=== PATIENT | female | born 1970 | race Caucasian/White ===

== ENCOUNTER 2017-05-21 21:19 | Emergency (ER) | payer OTHER ==
[~2017-05-21] VITALS: Ht 160 cm; Wt 96.6 kg
[2017-05-21 22:02] VITALS: Ht 160 cm; Wt 96.6 kg
[2017-05-22 00:45] VITALS: BP 128/72
== END 2017-05-22 00:45 | disposition home or self-care (01) ==
LOC: ED 21:19
DX: J02.9 Acute pharyngitis, unspecified (principal)
CPT/HCPCS: J1100; J1885

== ENCOUNTER 2017-06-01 18:44 | Emergency (ER) | payer OTHER ==
[~2017-06-01] VITALS: Ht 167.6 cm; Wt 95.2 kg
[2017-06-01 19:09] VITALS: Ht 167.6 cm; Wt 95.2 kg
[2017-06-01 21:34] VITALS: BP 123/65
== END 2017-06-01 21:34 | disposition home or self-care (01) ==
LOC: ED 18:44
DX: L03.115 Cellulitis of right lower limb (principal)
CPT/HCPCS: J1885; Q0092

== ENCOUNTER 2018-02-15 03:58 | Emergency (ER) | payer OTHER ==
[2018-02-15 04:08] VITALS: Ht 167.6 cm
[2018-02-15 05:11] VITALS: BP 129/91
== END 2018-02-15 05:11 | disposition home or self-care (01) ==
LOC: ED 03:58
DX: L03.115 Cellulitis of right lower limb (principal); Z98.890 Other specified postprocedural states

== ENCOUNTER 2019-05-20 12:08 | Emergency (ER) | payer OTHER ==
[~2019-05-20] VITALS: Ht 167.6 cm; Wt 97.5 kg
[2019-05-20 12:40] VITALS: BP 131/73; Ht 167.6 cm; Wt 97.5 kg
== END 2019-05-20 12:45 | disposition left against medical advice (07) ==
LOC: ED 12:08
DX: Z53.21 Procedure and treatment not carried out due to patient leaving prior to being seen by health care provider (principal)